=== PATIENT | female | born 1995 | race Caucasian/White ===

== ENCOUNTER 2025-02-10 23:13 | Inpatient (IN) | payer SELFPAY ==
[2025-02-10 22:32] VITALS: PULSE 70; O2SAT 99
[2025-02-10 22:33] VITALS: BP 126/70; PULSE 68
[2025-02-10 22:34] VITALS: TEMP 36.8
[2025-02-10 22:39] VITALS: BMI 36.6
[2025-02-10] MEDS: LACTATED RINGERS 500 ML 999 ML IV (23:50)
[2025-02-10 23:51] VITALS: TEMP 37.2
[2025-02-10 23:53] VITALS: BP 131/75; PULSE 74
[2025-02-11] VITALS (60 sets, daily range): BP systolic 94–131; BP diastolic 52–85; PULSE 67–206; RESP 16–18; TEMP 36.2–37.3; O2SAT 79–100
[2025-02-11 00:03] LABS: Hematocrit 37.3 % (37-47); Hemoglobin 13.3 g/dL (12.0-15.0); Immature Granulocytes Count 0.060 X10^3/uL (0.0-0.0); Mean Corp Hgb Conc 35.7 g/dL (32-36); Mean Corpuscular Volume 93.0 fL (81-99); Mean Platelet Vol. 10.4 fl (6.2-12.0); NRBC Flagged by Analyzer 0 % (0-5); Platelet Count 180 K/mm3 (150-450); RBC Distribution Width CV 12.3 % (11.6-14.6); RBC Distribution Width SD 41.9 fl (35.1-43.9); Red Blood Count 4.01 M/mm3 (4.2-5.4); White Blood Count 10.7 K/mm3 (4.4-11.0)
[2025-02-11] MEDS: Lactated Ringers 1,000 ML 50 ML IV (00:25)
[2025-02-11 01:07] LABS: Syphilis Antibodies Nonreactive (Nonreactive)
[2025-02-11] MEDS: Amnioinfusion- 0.9% NS 1,000 ML IV.SOLN. 1000 ML INTRA-UTER (02:54)
[2025-02-11] MEDS: fentaNYL-bupivacaine (epidural) 100 ML BAG EPIDURAL (03:30)
--- NOTE | 2025-02-11 03:37 | PCM.HP.OB ---
HPI - General General Date of Admission: 02/10/25 HPI Narrative EMIGDIO STRICKLAND, is a 29 F @ 39+ weeks who presents c/o SROM at home without contractions. upon arrival was 1cm- discussed with patient prior to arrival on unit will not start pitocin- if desires IOL can proceed to tertiary care center- or can give patient time to see if she progresses or can proceed with repeat cs. pt did not desire IOL and reported if she did not progress in labor she wanted repeat cs. pt admitted to [facility] with SROM and ultimately had cervical change. PFSH [facility] Home Medications ?Medication ?Instructions ?Recorded ?Last Taken ?Type docosahexaenoic acid 200 mg 1 mg PO DAILY 02/10/25 02/10/25 History capsule ( DHA) Allergy/AdvReac Type Severity Reaction Status Date / Time No Known Allergies Allergy Verified 02/10/25 22:41 Surgical History (Updated 02/11/25 @ 03:[address] Taylor Reyes MD) Previous section Social History Smoking Status: Never smoker History Elective abortions Hx Para 1 Spontaneous abortions Hx # Term Pregnancies Ectopic pregnancies Hx # Pregnancies Multiple births # of living children NST FHR Rate Baby A Baseline: 135 Variability:: Moderate Accelerations:: 15 x 15 Decelerations:: Variable and Prolonged (made change to 7cm- FHR down to 80s x approx 5min- was getting ready to sit for epidural. Tachysystole - terbutaline given. ) NST Reactive:: Yes FHR Category:: Category II Uterine Activity:: q1-2 min Vital Signs Vital Signs Vital Signs: 02/10/25 22:32 02/10/25 22:32 02/10/25 22:33 Temperature Temperature Source Pulse Rate 70 Respiratory Rate Blood Pressure 126/70 H BP Systolic 126 BP Diastolic 70 Pulse Ox 99 02/10/25 22:33 02/10/25 22:34 02/10/25 23:51 Temperature 98.2 F 99.0 F Temperature Source Pulse Rate 68 Respiratory Rate Blood Pressure BP Systolic BP Diastolic Pulse Ox 02/10/25 23:53 02/10/25 23:53 02/11/25 00:00 Temperature Temperature Source Temporal Pulse Rate 74 Respiratory Rate Blood Pressure 131/75 H BP Systolic 131 BP Diastolic 75 Pulse Ox 02/11/25 00:00 02/11/25 00:00 02/11/25 01:02 Temperature 98.9 F Temperature Source Pulse Rate 85 Respiratory Rate 16 Blood Pressure BP Systolic BP Diastolic Pulse Ox 02/11/25 01:02 02/11/25 01:03 02/11/25 01:03 Temperature 98.4 F Temperature Source Pulse Rate Respiratory Rate Blood Pressure 131/63 H BP Systolic 131 BP Diastolic 63 Pulse Ox 98 02/11/25 01:03 02/11/25 01:42 02/11/25 01:42 Temperature 98.4 F Temperature Source Pulse Rate 76 Respiratory Rate Blood Pressure 129/75 H BP Systolic 129 BP Diastolic 75 Pulse Ox 02/11/25 01:42 02/11/25 01:42 02/11/25 01:42 Temperature Temperature Source Pulse Rate 101 H Respiratory Rate 16 Blood Pressure BP Systolic BP Diastolic Pulse Ox 94 02/11/25 01:42 02/11/25 03:02 02/11/25 03:02 Temperature 98.4 F Temperature Source Pulse Rate 91 Respiratory Rate Blood Pressure BP Systolic BP Diastolic Pulse Ox 99 02/11/25 03:07 02/11/25 03:07 02/11/25 03:12 Temperature Temperature Source Pulse Rate 98 98 Respiratory Rate Blood Pressure BP Systolic BP Diastolic Pulse Ox 100 02/11/25 03:12 02/11/25 03:17 02/11/25 03:17 Temperature Temperature Source Pulse Rate 159 H Respiratory Rate Blood Pressure BP Systolic BP Diastolic Pulse Ox 100 79 02/11/25 03:17 02/11/25 03:17 02/11/25 03:20 Temperature Temperature Source Pulse Rate 206 H Respiratory Rate Blood Pressure 126/72 H BP Systolic 126 BP Diastolic 72 Pulse Ox 83 02/11/25 03:20 02/11/25 03:22 02/11/25 03:22 Temperature Temperature Source Pulse Rate 118 H 96 Respiratory Rate Blood Pressure BP Systolic BP Diastolic Pulse Ox 100 02/11/25 03:27 02/11/25 03:27 02/11/25 03:30 Temperature Temperature Source Pulse Rate 80 Respiratory Rate Blood Pressure 113/57 L BP Systolic 113 BP Diastolic 57 Pulse Ox 100 02/11/25 03:30 02/11/25 03:32 02/11/25 03:32 Temperature Temperature Source Pulse Rate 80 97 Respiratory Rate Blood Pressure BP Systolic BP Diastolic Pulse Ox 99 02/11/25 03:35 02/11/25 03:35 Temperature Temperature Source Pulse Rate 80 Respiratory Rate Blood Pressure 117/56 L BP Systolic 117 BP Diastolic 56 Pulse Ox Weight Weight: 90.991 kg Body Mass Index (BMI) 36.6 Physical Exam Const alert and oriented x3 General Appearance: cooperative HEENT normocephalic GI GI Narrative: Gravid, non tender to palpation. OB / External & Speculum: external exam normal Extremity normal to inspection Skin no rashes or lesions noted Neuro oriented x3 and CN's II-XII intact bilaterally Psych Appearance: grossly normal Labs Labs Labs: Blood Type A POSITIVE Antibody Screen NEGATIVE Hct, (37-47) 37.3 % Hgb, (12.0-15.0) 13.3 g/dL Syphilis Total Ab, (Nonreactive) Nonreactive Assessment & Plan (1) 39 weeks gestation of : (2) Late care affecting : PLAN: Plan Admit to L&D [facility] FHR/TOCO Epidural if requested for pain Monitor VS Anticipate
[2025-02-11] MEDS: Lactated Ringers 1,000 ML 200 ML IV (04:57)
--- NOTE | 2025-02-11 06:45 | PCM.PN.BLA ---
Progress Note pt reexamined at bedside- VE /-2 swollen cervix. at this time recommendation to proceed with repeat cs. pt in agreement.
[2025-02-11] MEDS: Cefazolin 1 GM/5 ML Vial 2 GM IV (06:53)
[2025-02-11] MEDS: Lidocaine 1% (30 ml sdv) 30 ML Vial 50 ML EPIDURAL (07:06)
[2025-02-11] MEDS: Lidocaine 2% (5ml sdv) 5 ML VIAL.MPF 17 ML EPIDURAL (07:32)
[2025-02-11] MEDS: TRANEXAMIC ACID 1,000 MG/10 ML ML 1000 MG IV (07:33)
[2025-02-11] MEDS: TRANEXAMIC ACID 1,000 MG in 0.9% Normal Saline (100mL Bag) 100 ML 440 MG IV (07:33)
[2025-02-11] MEDS: morphine PF (epidural) 5 MG/10 ML Vial IV (07:35)
--- NOTE | 2025-02-11 07:35 | EX.PCM.OBRPT ---
Maternal Data Information Gestational age: 39 weeks Operative Report (OB) Procedure Details Date of Procedure: 02/11/25 Procedure Start Time: 07:10 Procedure Stop Time: 07:42 Time of Delivery: 07:16 Pre-Operative Diagnosis: Sec. Arrest of Dilitation (failed TOLAC ) Post-Operative Diagnosis: Same as Pre-operative diagnosis Classification: WALT Type of Anesthesia: Epidural Special Medications: TXA Antibiotic Given: Ancef 2 grams IV x1 and Zithromax 500 mg/5 mL X1 Drain: Pete to straight drain Estimated Blood Loss: 650 Fluids Replaced: 700 Findings Description of surgery: pt progressed to 9cm without intervention- cervical swelling noted after >3hrs. cervix 8/80/-2 at time of . shared decision making with patient to proceed with repeat cs After informed consent was obtained the patient was taken the operating room she was given spinal anesthesia. She was then placed in the supine position. She was prepped and draped in the normal sterile fashion. Anesthesia was found to be adequate. At this time a Pfannenstiel skin incision was made with a knife was carried down to the underlying layer of the fascia. The fascial incision was then extended laterally using lawrence scissor. Attention was then turned to the superior aspect of the fascial edge was grasped with 2 straight Zuleyma clamps tented up and the rectus muscle dissected off sharply. Rectus muscles were then in the midline bluntly and peritoneum was entered bluntly. Gentle opposing traction was placed. At this time the vesicouterine peritoneum was identified. Scalpel was used to make a uterine incision in a low transverse fashion. The uterus was then entered bluntly gentle opposing traction was placed to extend this incision. Infant's head was brought to the uterine incision was delivered atraumatically. was vigorous at delivery and delayed cord clamping performed. Cord was clamped and cut was handed to the waiting nursery team. The Placenta was removed from the uterus. The uterus was then removed from the abdominal cavity. The uterus was cleared of all clots and debris using a lap. At this time the uterine incision was reapproximated using #1 Vicryl in a running locked fashion. Hemostasis was appreciated. Posterior cul-de-sac was then cleared of all clots and debris. Uterus was placed back in the abdominal cavity. Gutters were cleared of all clots and debris. Uterine incision was reevaluated and noted to be of excellent hemostasis. hemoblast placed. At this time the peritoneum was grasped with Kellys reapproximated using #2 Vicryl suture in a running fashion. hemoblast placed over rectus muscle. Fascia was then reapproximated using #1 Vicryl in a running fashion. Subcu layer was irrigated with NS, reapproximated with #2 0 plain gut suture in an interrupted fashion. Subcu layer was closed using 4-0 Monocryl in a subcu fashion. Dry sterile dressing was applied. Instrument lap needle count correct ?2. Anticipated normal postoperative course. Surgical findings: right tube and ovary appear normal. left ovary and tube not seen Presentation: Vertex Amniotic Membrane Rupture Type: Spontaneous Amniotic Fluid Description: Clear Placental Delivery Description: Expressed Placenta Disposition: [facility] Specimen collected: No Cord Vessel Description: 3 Vessels Cord Entanglement: None A gender: Male (1 minute): 8 (5 minute): 9 Delayed Cord Clamping: Yes Radial Drill Operator For Plastic candy cutter machine: Yes Float Phlebotomist: Christina Chavez Tasks completed by talent acquisition assistant: Closing, Altering tissue and Retracting Additional acquisitions assistant?: No Complications Complications: No
[2025-02-11] MEDS: fentaNYL 100 MCG/2 ML Ampul IV (07:36)
[2025-02-11] MEDS: Azithromycin 500 MG Vial (SNAP) IV (07:47)
[2025-02-11] MEDS: Oxytocin 15 Units/NS 250ml 15 UNITS/250 ML IV.SOLN 83 UNITS IV (07:50)
[2025-02-11] MEDS: Ketorolac 30 MG/ML Syringe IV ×3 (08:56→21:16)
[2025-02-11] MEDS: 0.9% Saline Lock 10 ML Syringe IV ×3 (11:57→21:15)
[2025-02-12] VITALS: BP 112/75; PULSE 78; RESP 18; TEMP 36.2; O2SAT 100
[2025-02-12] MEDS: Ketorolac 30 MG/ML Syringe IV (02:54)
[2025-02-12] MEDS: 0.9% Saline Lock 10 ML Syringe IV (02:55)
[2025-02-12 04:00] VITALS: BP 106/74; PULSE 80; RESP 17; TEMP 36.4; O2SAT 99
[2025-02-12 06:45] LABS: Hematocrit 28.4 % (37-47); Hemoglobin 9.8 g/dL (12.0-15.0); Mean Corp Hgb Conc 34.5 g/dL (32-36); Mean Corpuscular Volume 95.6 fL (81-99); Mean Platelet Vol. 10.1 fl (6.2-12.0); Platelet Count 137 K/mm3 (150-450); RBC Distribution Width CV 13.0 % (11.6-14.6); RBC Distribution Width SD 44.9 fl (35.1-43.9); Red Blood Count 2.97 M/mm3 (4.2-5.4); White Blood Count 10.0 K/mm3 (4.4-11.0)
--- NOTE | 2025-02-12 08:02 | PCM.PROGNOTE ---
Subjective Subjective patient seen at bedside, doing well. Patient reports good pain control. lochia mild. denies dizziness or CP. Objective Data Objective Data Vital Signs: Vital Signs Temp Pulse Resp BP Pulse Ox O2 Del Method 97.6 F L 80 17 106/74 99 Room Air 02/12/25 04:00 02/12/25 04:00 02/12/25 04:00 02/12/25 04:00 02/12/25 04:00 02/12/25 04:00 Oxygen Delivery Method Room Air Weight: 90.991 kg Body Mass Index (BMI) 36.6 Intake & Output: Intake and Output for Last 24 Hours 02/10/25 02/11/25 02/12/25 23:59 23:59 22:59 Intake Total 2360.00 / 2360.00 Output Total 1650 / 1650 300 / 300 Balance 710.00 / 710.00 -300 / -300 Lab / Micro Data 02/12/25 06:35 Labs: Laboratory Results - last 24 hr 02/12/25 06:35: WBC 10.0, RBC 2.97 L, Hgb 9.8 L, Hct 28.4 L, MCV 95.6, MCH 33.0 H, MCHC 34.5, RDW Std Deviation 44.9 H, RDW Coeff of Raúl 13.0, Plt Count 137 L, MPV 10.1 Micro: Microbiology 02/11/25 00:26 Urine, Clean Catch Chlamydia/Neisseria (PCR) - Final Physical Exam Narrative Abd: fundus firm. dressing dry and intact Const alert and oriented x3 General Appearance: cooperative HEENT normocephalic Neck General: normal visual inspection GI soft to palpation and non-distended GI Narrative: Fundus firm Extremity normal to inspection and no calf tenderness Skin no rashes or lesions noted Neuro oriented x3 and CN's II-XII intact bilaterally Psych mental status grossly normal Assessment & Plan Assessment/Plan (1) Delivery by section: PLAN: Plan POD#1 , Doing well Routine care pain mgmt monitor VS ambulation dc home today per patient request
--- NOTE | 2025-02-12 08:03 | DCINST_ITS ---
Discharge Instructions
--- NOTE | 2025-02-12 08:03 | PCM.DC ---
Discharge Instructions DC O2, CPAP, BIPAP needs Home O2 Discharge instructions: No Dressing / Incision May resume sexual activity in: 6-8 weeks Lifting Restrictions: 25 Dressing / Incision Call your doctor if your incision/area has: Continuous Slow Oozing, Sudden Increased Bleeding, Increased Pain/ Swelling, Increased Redness, Foul Smelling Discharge and Swelling at the incision site Call your doctor if you observe: Fever of 101 or Higher, Inability to urinate, Using more than 1 pad per hour and Uncontrolled pain Remove Dressing in: 1 week (post op) Cleanse incision/area with: Soap & Water Additional Dressing/Incision Instructions:: remove dressing at 7 days post op- if it becomes saturated prior to that time you may remove it. Let soap and water run over incision sites and dab dry. keep incision clean and dry. Follow Up Care Please Follow Up With: Taylor Reyes MD When: 1 weeks post of incision check and again at 6 weeks post . [phone] Test Results: Test results from this visit will be discussed in further detail at your follow-up appointment, if applicable. Discharge Plan Admission Admit Date/Time: 02/10/25 23:13 Attending Provider: Taylor Reyes Primary Care Provider: Idalmis Fuentes Primary Discharge Orders/Prescriptions Prescriptions: New acetaminophen 500 mg Tablet 1,000 mg PO Q6H Qty: 0 0RF ibuprofen 600 mg Tablet 600 mg PO Q6H Qty: 0 0RF simethicone 80 mg Tablet,Chewable 80 mg PO PCHS PRN (Reason: Indigestion/stomach pain) Qty: 0 0RF Continued DHA 200 mg capsule 1 mg PO DAILY Referrals / Follow Up: Care PhysicianIdalmis Primary [Primary Care Provider, Medical] Disposition Disposition (needs filled in before D/C Order can be placed): Home, Self Care
--- NOTE | 2025-02-12 08:05 | PCM.DC.BLA ---
Discharge Summary Date of Admission: 02/10/25 Date of Discharge: 02/12/25 Summary: Patient presented to [facility] with spontaneous rupture membranes progressed in active labor to 9 cm where she had arrest of dilation. Patient is a previous section but wanted a trial of labor after . Patient underwent then a repeat section at 39 weeks gestation without complication. She did normal postoperative course discharged home on postoperative day #1 per patient request Meaningful Use Info Meaningful Use Meaningful Use Diagnoses (Choose all that apply): None applicable Ischemic Stroke Statin Dosing Therapy Reference: STATIN DOSE THERAPY REFERENCE: * Patients > 75 years receive moderate or high dose statin therapy. * Patients 75 years or YOUNGER should receive HIGH intensity statin dose unless contraindicated. You will be required to document reason for non-treatment if statin daily dose does not meet guidelines. HIGH DOSE STATIN THERAPY DAILY Atorvastatin > than or = to 40 mg Rosuvastatin > than or = to 20 mg Amlodipine + Atorvastatin > than or = to 2.5/40 mg Ezetimibe + Simvastatin 10/80 mg Simvastatin 80mg Discharge Plan Admission Admit Date/Time: 02/10/25 23:13 Attending Provider: Taylor Ryees Primary Care Provider: Care Physician,Idalmis Primary Discharge Orders/Prescriptions Prescriptions: New acetaminophen 500 mg Tablet 1,000 mg PO Q6H Qty: 0 0RF ibuprofen 600 mg Tablet 600 mg PO Q6H Qty: 0 0RF simethicone 80 mg Tablet,Chewable 80 mg PO PCHS PRN (Reason: Indigestion/stomach pain) Qty: 0 0RF Continued DHA 200 mg capsule 1 mg PO DAILY Referrals / Follow Up: Care Physician,No Primary [Primary Care Provider, Medical] Disposition Disposition (needs filled in before D/C Order can be placed): Home, Self Care
[2025-02-12 09:00] VITALS: BP 108/72; PULSE 80; RESP 16; TEMP 36.4; O2SAT 99
[2025-02-12] MEDS: Senna/Docusate Sodium 1 Tablet PO (10:19)
[2025-02-12 13:00] VITALS: BP 113/71; PULSE 78; RESP 14; TEMP 36.6; O2SAT 99
[2025-02-12 19:48] VITALS: BP 108/69; PULSE 80; RESP 17; TEMP 36.4; O2SAT 100
[2025-02-13 02:30] VITALS: BP 124/71; PULSE 77; RESP 16; TEMP 36.5; O2SAT 100
[2025-02-13 07:54] VITALS: BP 121/77; PULSE 75; RESP 16; TEMP 36.6; O2SAT 100
--- NOTE | 2025-02-13 08:08 | PCM.PN.OB ---
Subjective Subjective Doing well per patient and nursing staff. Ambulating and taking PO without difficulty. Voiding and passing flatus. Pain controlled. , services for assistance. Denies headache, visual changes, chest pain, shortness of breath, leg pain or increased bleeding. Lochia normal. Objective Data Objective Data Vital Signs: Vital Signs Temp Pulse Resp BP Pulse Ox O2 Del Method 97.8 F 75 16 121/77 H 100 Room Air 02/13/25 07:54 02/13/25 07:54 02/13/25 07:54 02/13/25 07:54 02/13/25 07:54 02/13/25 07:54 Oxygen Delivery Method Room Air Weight: 200 lb 9.6 oz Body Mass Index (BMI) 36.6 Intake & Output: Intake and Output for Last 24 Hours 02/11/25 02/12/25 02/13/25 23:59 22:59 23:59 Intake Total 2360.00 / 2360.00 Output Total 1650 / 1650 300 / 300 Balance 710.00 / 710.00 -300 / -300 Lab / Micro Data 02/12/25 06:35 Micro: Microbiology 02/11/25 00:26 Urine, Clean Catch Chlamydia/Neisseria (PCR) - Final ROS Constitutional Constitutional: Reports systems reviewed and no addt'l complaints, except as documented; Denies headache(s) Eyes Eyes: Denies acute decrease in peripheral vision, blurry vision or change in vision ENT HEENT: Reports systems reviewed and no addt'l complaints, except as documented Cardiovascular Cardiovascular: Denies chest pain or dizziness Respiratory/Chest Respiratory/Chest: Denies cough, dyspnea, dyspnea on exertion, shortness of breath at rest or shortness of breath with exertion Gastrointestinal Gastrointestinal: Denies abdominal pain, diarrhea, nausea or vomiting Genitourinary Genitourinary: Denies abdominal discomfort Musculoskeletal Musculoskeletal: Denies limited range of motion Integumentary Integumentary: Reports systems reviewed and no addt'l complaints, except as documented Neurologic Neurologic: Reports systems reviewed and no addt'l complaints, except as documented Psychiatric Psychiatric: Reports systems reviewed and no addt'l complaints, except as documented Endocrine Endocrinology: Reports systems reviewed and no addt'l complaints, except as documented Hematologic/Lymphatic Hematologic/Lymphatic: Reports systems reviewed and no addt'l complaints, except as documented Allergic/Immunologic Allergic/Immunologic: Reports systems reviewed and no addt'l complaints, except as documented Physical Exam Const alert and oriented x3 General Appearance: cooperative Orientation / Consciousness: awake, oriented to person, oriented to place and oriented to time Exam Limitations: no limitations HEENT normocephalic Head and Scalp: normal to inspection, normocephalic and atraumatic Face and Sinus: normal facial exam Eyes General Eye: normal appearance of both eyes Neck full ROM Chest Chest: symmetrical chest wall rise Resp normal respiratory effort and normal air movement Auscultation: clear to auscultation bilaterally Cardio regular rate, regular rhythm, S1 normal heart sound, S2 normal heart sound, no murmurs, no rub, no gallops and no clicks GI normal to inspection, nondistended, normoactive bowel sounds and non-tender GI Narrative: Fundus firm 2 below U. Dressing dry and intact. appearance of the vagina normal Narrative: Normal lochia rubra Bladder / Kidney Exam: no CVA tenderness Back/Spine normal ROM Extremity normal to inspection and full ROM Skin no rashes or lesions noted Neuro oriented x3, CN's II-XII intact bilaterally and moves all extremities Sensorium / Orientation: awake, alert and oriented to person Motor Exam: clonus absent Deep Tendon Reflexes: Rt Patellar (L4): 2+ and Lt Patellar (L4): 2+ Assessment & Plan (1) Delivery by section: PLAN: Plan 1) Routine care, POD #2 2) Vitals signs stable 3) Pain controlled 4) , services PRN 5) D/C home 6) Follow up in 2 weeks and 6 weeks
[2025-02-13] MEDS: Senna/Docusate Sodium 1 Tablet PO (10:17)
== END 2025-02-13 10:50 | disposition home or self-care (01) | DRG 788 ==
LOC: WP 02-11 00:04
PROVIDERS: Admitting Provider Obstetrics & Gynecology; Referring Provider Obstetrics & Gynecology; Visit Provider Obstetrics & Gynecology
DX: O42.02 Full-term premature rupture of membranes, onset of labor within 24 hours of rupture (principal); O34.211 Maternal care for low transverse scar from previous cesarean delivery; O76 Abnormality in fetal heart rate and rhythm complicating labor and delivery; O66.41 Failed attempted vaginal birth after previous cesarean delivery; Z37.0 Single live birth; Z3A.39 39 weeks gestation of pregnancy
CPT/HCPCS: 59025; 59050; 85025; 85027; 86780; 86850; 86900; 86901; 87491; 87591; 99221; A4216; G0378; J2405